=== PATIENT | female | born 1975 | race Caucasian/White ===

== ENCOUNTER 2021-07-15 07:12 | Emergency (ER) | payer SELFPAY ==
[~2021-07-15] VITALS: Ht 165.1 cm; Wt 98.0 kg
[2021-07-15 07:25] VITALS: BP 190/106
--- NOTE | 2021-07-15 07:28 | PHYS DOC ---
General Adult EDM: Chief Complaint: KNEE INJURY HPI: HPI: Patient is a 45 year old female who presents with right knee pain. States she was getting out of bed earlier this morning and felt a popping sensation. Had immediate pain behind her patella. Has had difficulty bearing weight on it since. No history of trauma. States this did happen once before, and spontaneously improved. That episode was not as intense as this one. She never sought medical care for her previous episode of knee pain. Review of Systems: Review of Systems: Constitutional: Denies fever or chills. [] Eyes: Denies change in visual acuity. [] HENT: Denies nasal congestion or sore throat. [] Respiratory: Denies cough or shortness of breath. [] Cardiovascular: Denies chest pain or edema. [] GI: Denies abdominal pain, nausea, vomiting, bloody stools or diarrhea. [] : Denies dysuria. [] Musculoskeletal: Reports right knee pain Integument: Denies rash. [] Neurologic: Denies headache, focal weakness or sensory changes. [] Endocrine: Denies polyuria or polydipsia. [] Lymphatic: Denies swollen glands. [] Psychiatric: Denies depression or anxiety. [] Heart Score: C/O Chest Pain: No Risk Factors: Risk Factors: DM, Current or recent (<one month) smoker, HTN, HLP, family history of CAD, obesity. Risk Scores: Score 0 - 3: 2.5% MACE over next 6 weeks - Discharge Home Score 4 - 6: 20.3% MACE over next 6 weeks - Admit for Clinical Observation Score 7 - 10: 72.7% MACE over next 6 weeks - Early Invasive Strategies Physical Exam: PE: Constitutional: Well developed, well nourished, no acute distress, non-toxic appearance. [] HENT: Normocephalic, atraumatic, bilateral external ears normal, oropharynx moist, no oral exudates, nose normal. [] Eyes: PERRLA, EOMI, conjunctiva normal, no discharge. [] Neck: Normal range of motion, no tenderness, supple, no stridor. [] Cardiovascular:Heart rate regular Lungs & Thorax: Normal work of breathing Abdomen: Bowel sounds normal, soft, no tenderness, no masses, no pulsatile masses. [] Skin: Warm, dry, no erythema, no rash. [] Extremities: Right knee diffusely tender along the joint line, patella, tibia, femoral condyles. Pain with active and passive range of motion. She is able to initiate knee extension. Stable through varus and valgus stress. Posterior drawer and Samantha test negative. No redness, erythema, or warmth. Joint effusion present. Neurologic: Alert and oriented X 3, normal motor function, normal sensory functi on, no focal deficits noted. [] Psychologic: Affect normal, judgement normal, mood normal. [] EKG: EKG: [] Radiology/Procedures: Radiology/Procedures: [] Course & Med Decision Making: Course & Med Decision Making Pertinent Labs and Imaging studies reviewed. (See chart for details) Patient a 45-year-old female who presents with right knee pain, described as behind the patella with a popping sensation when getting out of bed. No deformity or laxity on examination. Neurovascular intact. Extensor mechanism intact. No evidence of septic joint. Question if this could have been a patellar subluxation that spontaneously reduced. We will obtain plain films. 0728 Signed out with XR pending. 0805 Jing Disclaimer: Jing Disclaimer: This electronic medical record was generated, in whole or in part, using a voice recognition dictation system. Departure Departure Impression: Primary Impression: Knee effusion, right Additional Impression: Knee pain LAVELLE LANZA MD Jul 15, 2021 07:28
[2021-07-15] MEDS ORDERED: ACETAMINOPHEN 500 MG TABLET PO ONE (08:00)
[2021-07-15] MEDS ORDERED: IBUPROFEN 200 MG TABLET. PO ONE (08:00)
--- NOTE | 2021-07-15 08:03 | RAD ---
EXAM: AP, lateral, oblique and sunrise views of the right knee. DATE: 07/15/2021 7:25 AM INDICATION: Reason: R knee pain behind patella. Patellar sunrise view please. / Spl. Instructions: / History: COMPARISON: No Prior FINDINGS: No acute fracture or dislocation. Large joint effusion. Small lateral compartment osteophytes. IMPRESSION: 1. Large knee joint effusion without evidence for acute fracture or dislocation. If there is clinica l concern for internal derangement of the knee, MRI would provide additional details.. 2. Small lateral compartment osteophytes and mild degenerative change. Electronically signed by: New Russell MD (07/15/2021 8:01 AM) [id number]
[2021-07-15] MEDS ORDERED: HYDROcodone/APAP 5/325MG 1 TAB TABLET PO ONE (08:30)
[2021-07-15] MEDS ORDERED: IBUP-1027 PO (08:51)
[2021-07-15] MEDS ORDERED: ACET325T9 PO (08:51)
--- NOTE | 2021-07-15 08:55 | PHYS DOC ---
Past Medical History Past Surgical History: No Surgical History General Adult EDM: Chief Complaint: KNEE INJURY HPI: HPI: see Dr. Wilson' note Review of Systems: Review of Systems: see Dr. Wilson' note Heart Score: C/O Chest Pain: No Risk Factors: Risk Factors: DM, Current or recent (<one month) smoker, HTN, HLP, family history of CAD, obesity. Risk Scores: Score 0 - 3: 2.5% MACE over next 6 weeks - Discharge Home Score 4 - 6: 20.3% MACE over next 6 weeks - Admit for Clinical Observation Score 7 - 10: 72.7% MACE over next 6 weeks - Early Invasive Strategies Current Medications: Current Medications Medications (Trade) Dose Ordered Sig/Georgette Start Time Stop Time Status Last Admin Dose Admin Acetaminophen (Tylenol) 1,000 mg 1X ONCE 07/15/21 08:00 07/15/21 08:38 DC Acetaminophen/ Hydrocodone Bitart (Lortab 5/325) 1 tab 1X ONCE 07/15/21 08:30 07/15/21 08:37 DC 07/15/21 08:43 1 TAB Ibuprofen (Motrin) 600 mg 1X ONCE 07/15/21 08:00 07/15/21 08:01 UNV Allergies: Allergies: Allergies Coded Allergies Type Severity Reaction Last Updated Verified morphine Allergy Intermediate 07/15/21 Yes aspirin Allergy Unknown 07/15/21 Yes Physical Exam: PE: see Dr. Wilson' note Current Patient Data: Vital Signs: Vital Signs Date Time Temp Pulse Resp B/P (MAP) Pulse Ox O2 Delivery O2 Flow Rate FiO2 07/15/21 08:43 16 07/15/21 07:25 98.1 98 190/106 (134) 100 Room Air 98.1 EKG: EKG: [] Radiology/Procedures: Radiology/Procedures: [] Course & Med Decision Making: Course & Med Decision Making Pertinent Labs and Imaging studies reviewed. (See chart for details) I received signout from Dr. Lance. Patient with atraumatic right knee pain stating she woke up, bent her knee and heard a pop-suspect ligamentous strain with effusion/hemarthrosis?. Patient states she is had a knee sprain of this right knee in the past. Denies any recent antibiotics. Is able to bend and flex her knee but reports significant pain with flexion. DP/PT pulses intact. Patella in normal position ( concerned regarding this, (patient consents to his/her/their knowledge and involvement in pts' medical care),). Right knee joint is not red or hot. No obvious ligamentous laxity with Samantha/reverse Samantha's, varus and valgus testing. No pain at right knee or hip. No associated fever or other joint involvement. Splint and crutches, provided rice instructions recommended. Will discharge home with strict ED return precautions were given for septic joint including fever, rash, neurologic deficits or worsening pain. Encouraged urgent outpatient follow-up with PMD and orthopedic surgery for definitive management. Life-threatening processes were considered but are low suspicion at this time, given history, physical exam and ED workup. Pt was educated on all prescription medications and adverse effects. All patient's questions were answered and pt was stable at time of discharge. Life/limb-threatening differential includes but is not limited to, avascular necrosis, septic arthritis, malignancy, compartment syndrome, fracture/ligamentous injury/overuse, decompression sickness, seronegative spondyloarthropathies, trauma including dislocation/fracture, Lyme disease, lupus, arthritis differentials, gout/pseudogout or decompression sickness. I have spoken with the patient and/or caregivers. I explained the patient's condition, diagnoses and treatment plan based on the information available to me at this time. I have answered the patient and/or caregiver's questions and addressed any concerns. The patient and/or caregivers have a good understanding of patient's diagnosis, condition and treatment plan as can be expected at this point. Vital signs have been stable. Patient's condition is stable and appropriate for discharge from the emergency department. Patient will pursue further outpatient evaluation with primary care physician or other designated or consulting physician as outlined in the discharge instructions. The patient and/or caregivers are agreeable to this plan of care and follow-up instructions have been explained in detail. The patient and/or caregivers have received these instructions in written form and have expressed an understanding of the discharge instructions. The patient and/or caregivers are aware that any significant change of condition or worsening of symptoms should prompt immediate return to this or the closest emergency department or call to 911. Jing Disclaimer: Jing Disclaimer: This electronic medical record was generated, in whole or in part, using a voice recognition dictation system. Departure Departure Impression: Primary Impression: Knee effusion, right Additional Impression: Knee pain Disposition: HOME / SELF CARE / HOMELESS Condition: STABLE Referrals: NO PCP (PCP) Follow-up with your primary care physician in 24 to 48 hours OR FOLLOW UP WITH FAMILY MEDICINE: [address], [address] [place] [address] Patient Instructions: Knee Effusion, Knee Sprain Additional Instructions: FOLLOW UP WITH ORTHOPEDICS: FOR DEFINITIVE MANAGEMENT within 1 week, RETURN TO ED FOR REPEAT INJURY, RASH, LACK OF SENSATION OR MOVEMENT OR FEVER Orthopaedic Surgery [address], [address] [place] [address] EMERGENCY DEPARTMENT GENERAL DISCHARGE INSTRUCTIONS Thank you for coming to [facility] Emergency Department (ED) today and trusting us with you care. We trust that you had a positive experience in our Emergency Department. If you wish to speak to the department management, you may call the Director at [phone]. YOUR FOLLOW UP INSTRUCTIONS ARE FOLLOWS: 1. Do you have a private Doctor? If you do not have a private doctor, please ask for a resource list of physicians or clinics that may be able to assist you with follow up care. 2. The Emergency Physicain has interpreted your x-rays. The X-Ray specialist will also review them. If there is a change in the findings, you will be notified in 48 hours when at all possible. 3. A lab test or culture has been done, your results will be reviewed and you will be notified if you need a change in treatment. ADDITIONAL INSTRUCTIONS AND INFORMATION: 1. Your care today has been supervised by a physician who is specially trained in emergency care. Many problems require more than one evaluation for a complete diagnosis and treatment. We recommend that you schedule your follow up appointment as recommended to ensure complete treatment of you illness or injury. If you are unable to obtain follow up care and continue to have a problem, or if your condition worsens, we recommend that you return to the ED. 2. We are not able to safely determine your condition over the phone nor are we able to give sound medical advice over the phone. For these safety reasons, if you call for medical advice we will ask you to come to the ED for further evaluation. 3. If you have any questions regarding these discharge instructions please call the ED at [phone]. SAFETY INFORMATION: In the interest of safety, wellness, and injury prevention; we encourage you to wear your sealbelt, if you smoke; quite smoking, and we encourage family to use a protective helmet for bicycling and other sporting events that present an increased risk for head injury. IF YOUR SYMPTOMS WORSEN OR NEW SYMPTOMS DEVELOP, OR YOU HAVE CONCERNS ABOUT YOUR CONDITION; OR IF YOUR CONDITION WORSENS WHILE YOU ARE WAITING FOR YOUR FOLLOW UP APPOINTMENT; EITHER CONTACT YOUR PRIMARY CARE DOCTOR, THE PHYSICIAN WHOSE NAME AND NUMBER YOU WERE GIVEN, OR RETURN TO THE ED IMMEDIATELY. Scripts Acetaminophen (TYLENOL) 325 Mg Tablet 1-2 TAB PO QID, #32 TAB 0 Refills Prov: MAYRA DAVID DO 07/15/21 Ibuprofen (IBUPROFEN) 400 Mg Tablet 600 MG PO PRN Q6HRS PRN for INFLAMMATION, #20 TAB Prov: MAYRA DAVID DO 07/15/21 MAYRA DAVID DO Jul 15, 2021 08:55
== END 2021-07-15 09:08 | disposition home or self-care (01) ==
LOC: ER 07:12
DX: M25.561 Pain in right knee (principal); M25.461 Effusion, right knee; X50.9XXA Other and unspecified overexertion or strenuous movements or postures, initial encounter; Y93.89 Activity, other specified; Y92.89 Other specified places as the place of occurrence of the external cause; Y99.8 Other external cause status
CPT/HCPCS: 29505; 73564; 99283

== ENCOUNTER 2021-08-01 11:58 | Emergency (ER) | payer SELFPAY ==
[~2021-08-01] VITALS: Ht 162.6 cm; Wt 100.0 kg
[~2021-08-01 11:58] MED LIST: ACET325T9 PO; IBUP-1027 PO
--- NOTE | 2021-08-01 13:27 | PHYS DOC ---
Past Medical History Additional Past Medical Histor: druge abuse history Past Surgical History: No Surgical History Smoking Status: Current Every Day Smoker General Adult EDM: Chief Complaint: LOWER EXT PAIN HPI: HPI: Patient is a 45-year-old female that presents today via EMS with right knee pain. Patient states on July 15 of this year she experienced a popping sensation in her knee and had acute pain she was seen here in the emergency department and had plain film x-rays done. Per old medical records and patient report patient was instructed to follow-up with her primary care and/or orthopedics patient did not do so due to planning her wedding. Patient presents today because yesterday she had increasing pain with no trauma. Patient denies fever or chills, redness or warmth to the knee. Patient states that 2 hours prior to arrival she took 3 Aleve [id number], she is currently drinking whole milk out of 1/2 gallon jug for GERD type symptoms. Patient was found by nursing staff to be smoking outside prior to coming back to her room. Patient states she is on a drug rehab program where she gets called randomly for drug screens as well. Review of Systems: Review of Systems: Constitutional: Denies fever or chills. [] Eyes: Denies change in visual acuity. [] HENT: Denies nasal congestion or sore throat. [] Respiratory: Denies cough or shortness of breath. [] Cardiovascular: Denies chest pain or edema. [] GI: Denies abdominal pain, nausea, vomiting, bloody stools or diarrhea. [] : Denies dysuria. [] Musculoskeletal: right knee pain and swelling Integument: Denies rash. [] Neurologic: Denies headache, focal weakness or sensory changes. [] Endocrine: Denies polyuria or polydipsia. [] Lymphatic: Denies swollen glands. [] Psychiatric: Denies depression or anxiety. [] Heart Score: C/O Chest Pain: N/A Risk Factors: Risk Factors: DM, Current or recent (<one month) smoker, HTN, HLP, family history of CAD, obesity. Risk Scores: Score 0 - 3: 2.5% MACE over next 6 weeks - Discharge Home Score 4 - 6: 20.3% MACE over next 6 weeks - Admit for Clinical Observation Score 7 - 10: 72.7% MACE over next 6 weeks - Early Invasive Strategies Allergies: Allergies: Allergies Coded Allergies Type Severity Reaction Last Updated Verified morphine Allergy Intermediate 07/15/21 Yes aspirin Allergy Unknown 07/15/21 Yes Physical Exam: PE: Constitutional: Well developed, well nourished, no acute distress, non-toxic appearance. [] HENT: Normocephalic, atraumatic, bilateral external ears normal, oropharynx moist, no oral exudates, nose normal. [] Eyes: PERRLA, EOMI, conjunctiva normal, no discharge. [] Neck: Normal range of motion, no tenderness, supple, no stridor. [] Cardiovascular:Heart rate regular rhythm, no murmur [] Lungs & Thorax: Bilateral breath sounds clear to auscultation [] Abdomen: Bowel sounds normal, soft, no tenderness, no masses, no pulsatile mass es. [] Skin: Warm, dry, no erythema, no rash. [] Back: No tenderness, no CVA tenderness. [] Extremities: right knee swelling and tenderness with palpation, ROM is limited due to pain and swelling, pedal pulse distal intact, cap refill < 2 secs, no signs of symptoms of infection noted. Neurologic: Alert and oriented X 3, normal motor function, normal sensory function, no focal deficits noted. [] Psychologic: Affect normal, judgement normal, mood normal. [] Current Patient Data: Vital Signs: Vital Signs Date Time Temp Pulse Resp B/P (MAP) Pulse Ox O2 Delivery O2 Flow Rate FiO2 08/01/21 13:13 98.3 98 22 156/91 (112) 99 Room Air 98.3 EKG: EKG: [] Radiology/Procedures: Radiology/Procedures: Right knee effusion drainage, after informed consent was obtained from patient, right knee was cleansed with chlorhexidine and a #22 needle introduced into lateral knee superior to the kneecap into effusion area, 3 mL of serosanguineous fluid removed, no blood noted initially but as removing the needle blood was introduced into the specimen. Specimen was clear ended up look infectious in nature. Patient tolerated procedure well specimen sent to lab [] Course & Med Decision Making: Course & Med Decision Making Pertinent Labs and Imaging studies reviewed. (See chart for details) [Discussed patient with Dr. Lance, no new radiological imaging needed. Patient had NSAIDs prior to arrival, will have nursing staff place a right knee immobilizer on patient also given crutches with crutch training in the department as well. Will encourage patient to follow-up with Dr. Haddad this week for further radiological imaging such as an MRI. Dr. Lance went in to see patient felt the knee was warmer on the right than the left, ultrasound done effusion noted on ultrasound. Recommended CBC and drainage of effusion for sampling. 1500 patient resting quietly on her left side to patient at length the patient states that she has a knee immobilizer and crutches at home states that she has been using those at home and has not had time to follow-up with orthopedic doctor at this time. Patient states that 3 days ago she did hit her knee on the car door has no visible abrasions noted. Will await cell count of effusion fluid. ] 1530 reviewed lab results with patient and significant other, inform them that indications preliminary states that is not infectious in nature. Patient will need to follow-up with orthopedic physician next week for further evaluation of the knee. Patient verbalized understanding of this, significant other states that knee immobilizer that was placed on July 15 is not working and told him that that was all that we had available, will provide another 1 here because he states the other one is broken. We will give hydrocodone 10 tablets. Informed patient to be nonweightbearing, to ice and elevate and to follow-up with orthopedics next week. Patient and significant other verbalized understanding of these instructions and agreed to plan of care. Radhaon Disclaimer: Dragon Disclaimer: This electronic medical record was generated, in whole or in part, using a voice recognition dictation system. Departure Departure Impression: Primary Impression: Knee effusion, right Disposition: HOME / SELF CARE / HOMELESS Condition: STABLE Referrals: NO PCP (PCP) CESAR VILLALOBOS DO Patient Instructions: Crutch Use, [id number], Knee Effusion, [id number], Knee Immobilizer, [id number] Additional Instructions: Use knee immobilizer and crutches nonweightbearing until followed up with orthopedic doctor Follow-up with orthopedic physician Dr. Villalobos next week, contact information given Take ibuprofen and/or Aleve as needed for mild to moderate pain Take hydrocodone as directed for severe pain Ice 20 minutes on 3-4 times daily Scripts Hydrocodone Bit/Acetaminophen (HYDROCODONE-APAP 5-325 ) 1 Tab Tablet 1 TAB PO PRN Q6HRS PRN for PAIN, #10 TAB 0 Refills Prov: RITESH IBRAHIM DANCE ENTERTAINER 08/01/21 RITESH IBRAHIM DANCE ENTERTAINER Aug 01, 2021 13:27
[2021-08-01 14:40] LABS: BASO # 0.1 x10^3/uL (0.0-0.2); BASO % 1 % (0-3); EOS # 0.5 x10^3/uL (0.0-0.7); EOS % 4 % (0-3); HEMATOCRIT 40.6 % (36.0-47.0); HEMOGLOBIN 13.7 g/dL (12.0-15.5); LYMPH # 2.3 x10^3/uL (1.0-4.8); LYMPH % 19 % (24-48); MEAN CORPUSCULAR HEMOGLOBIN 30 pg (25-35); MEAN CORPUSCULAR HGB CONC 34 g/dL (31-37); MEAN CORPUSCULAR VOLUME 88 fL (79-100); MONO # 1.1 x10^3/uL (0.0-1.1); MONO % 9 % (0-9); NEUT % 67 % (31-73); PLATELET COUNT 279 x10^3/uL (140-400); RED BLOOD COUNT 4.62 x10^6/uL (3.50-5.40); RED CELL DISTRIBUTION WIDTH 14.6 % (11.5-14.5); WHITE BLOOD COUNT 11.9 x10^3/uL (4.0-11.0)
[2021-08-01 15:19] LABS: BF SOURCE SYNOVIAL
[2021-08-01 15:20] LABS: BF CLARITY HAZY; BF COLOR RED; BF MON % 65 %; BF PMN % 35 %; BF RBC COUNT 8200 /cmm (Not Established); BF WBC COUNT 100 /cmm (Not Established)
[2021-08-01] MEDS ORDERED: HYDR-2761 PO (15:44)
[2021-08-01 16:15] VITALS: BP 146/78
== END 2021-08-01 16:00 | disposition home or self-care (01) ==
LOC: ER 11:58
DX: M25.461 Effusion, right knee (principal); M25.561 Pain in right knee; F17.200 Nicotine dependence, unspecified, uncomplicated; Z88.5 Allergy status to narcotic agent; Z88.6 Allergy status to analgesic agent
CPT/HCPCS: 29505; 36415; 85025; 87071; 87075; 89050; 89060; 99283; 99284; 20610-50